=== PATIENT | female | born 1975 ===

== ENCOUNTER 2021-04-28 15:55 | Emergency (ER) | payer SELFPAY ==
[2021-04-28 15:59] VITALS: BP 180/104
[2021-04-28] MEDS ORDERED: TETANUS,DIPH,PERTUSS(ACELL) VACCINE 0.5 ML SYRINGE IM ONE (16:02)
--- NOTE | 2021-04-28 16:48 | Emergency Department Report ---
ED Laceration HPI - HPI Chief Complaint: Wound/Laceration Stated Complaint: LACERATION Time Seen by Provider: 04/28/21 15:59 Tetanus Status: Not up to Date Laceration Symptoms: Yes Pain, No Foreign Body Sensation, No Numbness, No Weakness Other History: Is a pleasant 45-year-old female presents the emergency department chief complaint of a laceration to her right thumb. She reports she was at work when she accidentally cut her thumb with a knife while cutting tomatoes. She is unsure of her last tetanus vaccine. She denies any other injuries. ED Review of Systems ROS: Stated complaint: LACERATION Other details as noted in HPI Comment: All other systems reviewed and negative Constitutional: denies: chills, fever Eyes: denies: eye pain, eye discharge, vision change ENT: denies: ear pain, throat pain Respiratory: denies: cough, shortness of breath, wheezing Cardiovascular: denies: chest pain, palpitations Endocrine: no symptoms reported Gastrointestinal: denies: abdominal pain, nausea, diarrhea Genitourinary: denies: urgency, dysuria, discharge Musculoskeletal: denies: back pain, joint swelling, arthralgia Skin: as per HPI. denies: rash, lesions Neurological: denies: headache, weakness, paresthesias Psychiatric: denies: anxiety, depression Hematological/Lymphatic: denies: easy bleeding, easy bruising ED Past Medical Hx - Past Medical History Previous Medical History?: Yes Hx Hypertension: Yes - Surgical History Past Surgical History?: No - Medications Home Medications: Home Medications Medication Instructions Recorded Confirmed Last Taken Type cephALEXin [Keflex] 500 mg PO Q6HR #40 capsule 04/28/21 Unknown Rx Laceration Physical Exam - Exam General: Vital signs noted. No distress. Alert and acting appropriately. Laceration Location: Upper Extremity (There is a 2 cm superficial flap laceration to the right lateral thumb. Full active range of motion of the DIP and IP joint to full flexion extension. Normal distalization capillary refill.) Laceration Exam: Yes Normal Distal CMS, No Foreign Body, No Exposed Tendon, Vessel, or Nerve, No Tendon Injury ED Course Vital Signs 04/28/21 15:58 Temperature 98.2 F Pulse Rate 116 H Respiratory 16 Rate Blood Pressure 180/104 [Right] O2 Sat by Pulse 98 Oximetry - Laceration /Wound Repair Right Hand Wound Location: head Wound Length (cm): 3 Wound's Depth, Shape: superficial, flap Wound Explored: clean Irrigated w/ Saline (ccs): 500 Betadine Prep?: Yes Anesthesia: 1% Lidocaine (Digital block) Volume Anesthetic (ccs): 5 Wound Debrided: minimal Wound Repaired With: sutures Suture Size/Type: 4:0 Number of Sutures: 4 Layer Closure?: No Sterile Dressing Applied?: Yes Progress: Patient tolerated the procedure well, less than 5 mL blood loss. ED Medical Decision Making - Medical Decision Making Superficial laceration to the right hand. Tetanus was updated. Laceration was repaired. Patient tolerated this well. Patient was placed on Keflex. Outpatient follow-up primary care doctor. I did educate the patient due to the superficial nature of the flap it was possible that the skin may not survive and this would scab up and fall off on its own. Recommend she return to the ER with any changes symptoms such as redness, purulent drainage or increased pain. She verbalized understand the diagnosis, treatment and follow-up instructions all of her questions were answered. - Differential Diagnosis Laceration, abrasion, burn Critical care attestation.: If time is entered above; I have spent that time in minutes in the direct care of this critically ill patient, excluding procedure time. ED Disposition Clinical Impression: Laceration of thumb Qualifiers: Encounter type: initial encounter Damage to nail status: without damage Foreign body presence: without foreign body Laterality: right Qualified Code(s): S61.011A - Laceration without foreign body of right thumb without damage to nail, initial encounter Disposition: 01 HOME / SELF CARE / HOMELESS Is pt being admited?: No Condition: Stable Instructions: Laceration Care, Adult Prescriptions: cephALEXin [Keflex] 500 mg PO Q6HR #40 capsule Referrals: [facility] [Provider Group] - 3-5 Days Forms: Work/School Release Form(ED) Time of Disposition: 16:47
== END 2021-04-28 17:04 | disposition home or self-care (01) ==
LOC: ED 15:55
DX: S61.011A Laceration without foreign body of right thumb without damage to nail, initial encounter (principal); W26.8XXA Contact with other sharp object(s), not elsewhere classified, initial encounter; Y93.89 Activity, other specified; Y92.89 Other specified places as the place of occurrence of the external cause; Y99.8 Other external cause status
CPT/HCPCS: 90471; 90715; 99282